=== PATIENT | male | born 1975 | race Caucasian/White ===

== ENCOUNTER → 2017-05-30 | Outpatient (CLI) | payer OTHER | END | disposition home or self-care (01) | LOC: RAD 13:04 | DX: M99.02 Segmental and somatic dysfunction of thoracic region (principal); M99.03 Segmental and somatic dysfunction of lumbar region ==

== ENCOUNTER 2018-04-05 09:16 | Outpatient (CLI) | payer OTHER | END 2018-04-05 15:05 | disposition home or self-care (01) | LOC: SONOGRAMA 09:16 | DX: Q61.2 Polycystic kidney, adult type (principal) ==